=== PATIENT | female | born 1990 | race African-American/Black ===

== ENCOUNTER 2017-03-25 10:38 | Emergency (ER) | payer OTHER ==
--- NOTE | 2017-03-25 10:42 | PDOC ---
Attending Attestation - Resident Resident Name: Mark Fermin - ED Attending Attestation I have performed the following: I have examined & evaluated the patient, The case was reviewed & discussed with the resident, I agree w/resident's findings & plan, Exceptions are as noted - HPI HPI: 03/25/17 10:42 The patient is a 26-year-old female, with a significant past medical history of lactose intolerance, who presents to the emergency department from an urgent care, complaining of abdominal pain. The pain is diffuse and occurs more frequently after meals. She has had increased frequency of stools, which have been loose. She has been eating dairy products. She denies vaginal discharge. She denies urinary symptoms. She denies fever, chills, nausea, vomiting. 03/25/17 11:19 - Physicial Exam PE: 03/25/17 11:14 She is well appearing and in no acute distress She has mild tenderness to deep palpation diffusely without any increased tenderness at [place] point. 03/25/17 11:20 - Medical Decision Making 03/25/17 12:01 Labs noted including leukocytosis with left shift as well as hyponatremia Will CT abdomen and pelvis with oral and IV contrast 03/25/17 14:52 The patient has remained quite comfortable while in the emergency department CT and ultrasound reports noted Her clinical presentation is consistent with either gastritis or food intolerance I have advised that she avoid any lactose, begin taking a proton pump inhibitor , and follow-up with gastroenterology She is aware of the ovarian findings, and will follow-up with NURSE Of note, her clinical presentation is not consistent with ovarian torsion Clinical impression: Intermittent abdominal pain Suspected food intolerance Possible gastritis I discussed the physical exam findings, ancillary test results and final diagnoses with the patient. I answered all of the patient's questions. The patient was satisfied with the care received and felt comfortable with the discharge plan and treatment plan. The patient will call their primary care physician within 24 hours to arrange follow-up and will return to the Emergency Department with any new, persistent or worsening symptoms.
[2017-03-25 10:57] VITALS: BMI 17.4
--- NOTE | 2017-03-25 11:34 | PDOC ---
History of Present Illness - General Chief Complaint: Pain, Acute Stated Complaint: ABDOMINAL PAIN Time Seen by Provider: 03/25/17 10:41 History Source: Patient Exam Limitations: No Limitations - History of Present Illness Initial Comments: 26 y/o F who is lactose intolerant presents to [facility] ER for abdominal pain. She was seen at urgent care this morning who recommended she come to an emergency room for her abdominal pain. She has been having generalized abdominal pain since November that occurs approximately once per month and usually after eating. The pain normally goes away after 1 hour. Last night pt had abdominal pain again after eating which did not go away after 1 hour and took pepto bismol which helped somewhat. This morning she woke up with the abdominal pain which is unusal for her and went to the urgent care. Pain this morning is rated at a 7/10 and across whole abdomen with some mild radiation to the back. She has also had loose stools lately which have been more foul smelling and floating. This morning she had diarrhea with no blood in the stool. She denies N /V/F/C, loss of appetite, abdominal distention, constipation, weight change, trauma, recent travel, sick contacts, dizziness, light-headedness, chest pain, sob, peripheral edema, dysuria. Pt is not sexually active. LMP was 2 weeks ago. Past History - Past Medical History Allergies/Adverse Reactions: Allergies Allergy/AdvReac Type Severity Reaction Status Date / Time peanuts Allergy Severe Difficulty Uncoded 03/25/17 10:45 Breathing peas Allergy Severe Difficulty Uncoded 03/25/17 10:45 Breathing seafood Allergy Severe Difficulty Uncoded 03/25/17 10:45 Breathing Home Medications: Ambulatory Orders Pantoprazole Sodium [Protonix -] 40 mg PO DAILY #30 tablet.ec 03/25/17 - Immunization History Td Vaccination: Yes Immunization Up to Date: Yes - Psycho/Social/Smoking Cessation Hx Anxiety: No Suicidal Ideation: No Smoking Status: No Smoking History: Never smoked Years of Tobacco Use: 0 Number of Cigarettes Smoked Daily: 0 Cigars Per Day: 0 Review of Systems - Review of Systems Able to Perform ROS?: Yes Comments:: CONSTITUTIONAL: Absent: fever, chills, diaphoresis, loss of appetite HEENT: Absent: throat swelling, difficulty swallowing CARDIOVASCULAR: Absent: chest pain, lightheadedness, peripheral edema RESPIRATORY: Absent: cough, shortness of breath GASTROINTESTINAL: +abdominal pain, loose stools, diarrhea Absent: abdominal distension, nausea, vomiting, constipation, melena, hematochezia GENITOURINARY: Absent: dysuria, hematuria, flank pain ENDOCRINE:Absent: unexplained weight gain, unexplained weight loss NEUROLOGIC: Absent: headache, dizziness, bladder or bowel incontinence PSYCHIATRIC: Absent: anxiety, depression, suicidal or homicidal ideation, hallucinations Is the patient limited [place] proficient: No *Physical Exam - Physical Exam Comments: GENERAL: Well developed, well nourished, thin. Awake and alert. No acute distress. HEENT: EOMI. No conjunctival pallor. Sclera are non-icteric. Moist mucous membranes. NECK: Supple. Full ROM. CARDIOVASCULAR: Regular rate and rhythm. No murmurs, rubs, or gallops. Distal pulses are 2+ and symmetric. PULMONARY: No evidence of respiratory distress. Lungs clear to auscultation bilaterally. No wheezing, rales or rhonchi. ABDOMINAL: +diffuse abdominal tenderness worse in lower quadrants. Negative obtruator sign. +hyperactive bowel sounds Soft. Non-tender. Non-distended. No rebound or guarding. No organomegaly. MUSCULOSKELETAL: Normal range of motion at all joints. No bony deformities or tenderness. No CVA tenderness. EXTREMITIES: No cyanosis. No calf tenderness. SKIN: Warm and dry. Normal capillary refill. No rashes. No jaundice. NEUROLOGICAL: Alert, awake, appropriate. Cranial nerves 2-12 grossly intact. Normal speech. PSYCHIATRIC: Cooperative. Good eye contact. Appropriate mood and affect. ED Treatment Course - LABORATORY CBC & Chemistry Diagram: 03/25/17 11:28 03/25/17 11:28 Medical Decision Making - Medical Decision Making 03/25/17 11:30 Ordered CBC, CMP, lipase, CRP, UA, urine for to r/o inflammatory causes, pancreatitis, cholecystitis, infection, UTI/ pyelonephritis 03/25/17 12:00 CBC shows WBC of 12.9 with left shift UA negative, urine HCG negative CMP shows Na of 129 1 L of NS ordered for hyponatremia Abd/Pelvis CT with PO contrast ordered 03/25/17 14:08 CT abd/pelvis impression: no definite evidence of acute colitis. A nonspecific 4 x 3.4 x 3 cm right adnexal hypodense oval-shaped structure is noted possibly representing a cyst with internal debris, abscess, or solid structure. Small amount of free fluid in the pelvic cul-de-sac. Transvaginal ultrasound ordered. 03/25/17 15:00 TV US shows a 4 x 3.4 x 3 cm right adnexal cyst containing small to moderate amount of internal debris. There is mild diffuse wall thickening. Possible septate uterus. No doppler evidence of ovarian torsion, sensitivity 70%. Pt to be discharged home. Pt will be prescribed PPI for gastritis. Pt to f/u with spanisher for right adnexal cyst. Pt to f/u with GI for further GI work up. Pt also advised to cut out dairy completely from diet for next 2 weeks and see if it helps resolve the abdominal pain. Pt advised to cut out gluten products following that if symptoms not relieved with dairy-free diet. Pt to continue with nutrition counseling with GI. *DC/Admit/Observation/Transfer Diagnosis at time of Disposition: Adnexal cyst, Gastritis - Discharge Dispostion Disposition: HOME Condition at time of disposition: Stable - Referrals Referrals: Ochoa Murguia MD [Staff Physician] - - Patient Instructions Printed Discharge Instructions: DI for Ovarian Cyst, DI for Gastritis, Gluten- Free Diet, Lactose Intolerance Additional Instructions: Follow up with your parachute rigger for your ovarian cyst. You will also need to follow up with a GI doctor, you may see Dr. Murguia for this. You have been prescribed a medication to help with your abdominal pain - pantoprazole (protonix) to take daily. Please let your GI doctor know about this medication. At this time you should eat a dairy free diet to see if you have improvement in your symptoms over the next 2 weeks. If there are no improvements you should eat a gluten free diet for two weeks to check for improvement. You can also follow with your GI doctor for further nutritional counseling. If your symptoms worsen come back to the emergency room. - Post Discharge Activity Work/School Note: Back to Work
[2017-03-25 11:47] LABS: BASOPHIL 0.4 % (0-2.0); EOSINOPHIL 2.1 % (0-4.5); MCH 31.6 pg (25.7-33.7); MCHC 34.1 g/dl (32.0-36.0); MEAN CELL VOLUME 92.8 fl (80-96); MEAN PLT VOLUME 8.7 fl (7.5-11.1); NEUTROPHILS 82.9 % (42.8-82.8); PLATELET COUNT 281 K/MM3 (134-434); RDW 11.6 % (11.6-15.6); WHITE BLOOD COUNT 12.9 K/mm3 (4.0-10.8)
[2017-03-25 11:55] LABS: ALBUMIN 4.1 g/dl (3.5-5.0); ALK PHOS 61 U/L (32-92); ANION GAP 5 (8-16); BILIRUBIN,TOTAL 0.8 mg/dl (0.2-1.0); CALCIUM 9.5 mg/dl (8.4-10.2); CO2 24 mmol/L (22-28); COCKROFT - GAULT 94.9535; CREATININE 0.6 mg/dl (0.6-1.3); GLUCOSE,RANDOM 85 mg/dl (74-106); SGOT/AST 22 U/L (10-42); SGPT/ALT 11 U/L (10-40)
[2017-03-25 11:55] LABS: URINE APPEARANCE Clear; URINE BILIRUBIN Negative (NEGATIVE); URINE BLOOD Negative (NEGATIVE); URINE COLOR AMBER; URINE GLUCOSE (UA) Negative (NEGATIVE); URINE KETONE Negative (NEGATIVE); URINE LEUK ESTERASE Negative (NEGATIVE); URINE NITRITE Negative (NEGATIVE); URINE PROTEIN Negative (NEGATIVE); URINE UROBILINOGEN 0.2 E.U/dl (0.2-1.0)
[2017-03-25] MEDS ORDERED: SODIUM CHLORIDE 1,000 ML IV STA (12:01)
[2017-03-25 13:03] LABS: C-REACTIVE PROTEIN < 0.3 MG/DL (0.00-0.3)
[2017-03-25 14:01] VITALS: BP 129/87; PULSE 72; TEMP 97.8
== END 2017-03-25 15:26 | disposition home or self-care (01) ==
LOC: FER 10:38
PROC: 3E0337Z Introduction of Electrolytic and Water Balance Substance into Peripheral Vein, Percutaneous Approach (ICD-10-PCS; principal; 2017-03-25)
DX: K29.70 Gastritis, unspecified, without bleeding (principal); N83.8 Other noninflammatory disorders of ovary, fallopian tube and broad ligament
CPT/HCPCS: 36415; 74176-TC; 76830-TC; 80053; 81003; 83690; 84703; 85025; 86140; 99283-25